=== PATIENT | male | born 1950 | race Caucasian/White ===

== ENCOUNTER → 2018-06-15 | Day surgery (SDC) | payer MEDICARE ==
[2018-05-29 13:42] LABS: BASOPHILS # (AUTO) 0.1 (0.0-0.1); BASOPHILS % 0.9 % (0.0-1.0); EOSINOPHILS # (AUTO) 0.3 (0.0-0.4); EOSINOPHILS % 3.8 % (0.0-6.0); HEMATOCRIT 40.9 % (38.2-49.6); HEMOGLOBIN 13.6 g/dL (14.0-18.0); LYMPHOCYTES # (AUTO) 2.3 (1.0-3.2); LYMPHOCYTES % 26.4 % (18.0-39.1); MEAN CORPUSCULAR HEMOGLOBIN 30.4 pg (28-32); MEAN CORPUSCULAR HGB CONC 33.3 g/dL (31-35); MEAN CORPUSCULAR VOLUME 91.5 fL (81-99); MONOCYTES % 11.3 % (4.4-11.3); NEUTROPHILS % 57.3 % (38.7-80.0); PLATELET COUNT 250 x10e3/uL (140-360); RED BLOOD COUNT 4.47 x10e6/uL (4.3-5.7); RED CELL DISTRIBUTION WIDTH 12.8 % (11.7-14.4)
[2018-05-29 13:55] LABS: ANION GAP 13.9 mmol/L (8-16); BLOOD UREA NITROGEN 11 mg/dL (7-26); BUN/CREATININE RATIO 13 (6-25); CALCIUM 9.1 mg/dL (8.4-10.2); CARBON DIOXIDE 29 mmol/L (22-29); CHLORIDE 99 mmol/L (98-107); CREATININE, SERUM 0.86 mg/dL (0.72-1.25); EST GLOMERULAR FILTRATION RATE > 60 ML/MIN (60-); GLUCOSE 106 mg/dL (74-118); SODIUM 139 mmol/L (136-145)
[2018-05-29 14:00] LABS: POTASSIUM 2.9 mmol/L (3.5-5.1)
--- NOTE | 2018-05-29 14:34 | Diagnostic Imaging Report ---
EXAMINATION: CHEST 2 VIEWS INDICATION: Pre-op. COMPARISON: None FINDINGS: TUBES and LINES: None. LUNGS: Lungs are well inflated. Mild patchy opacities at the left lung base, likely atelectasis. PLEURA: No pleural effusion or pneumothorax. HEART AND MEDIASTINUM: The cardiomediastinal silhouette is unremarkable. Atherosclerotic calcifications of the aortic arch. BONES AND SOFT TISSUES: There are multiple old bilateral rib fractures. The fractures of the left posterolateral sixth through eighth ribs may be subacute. UPPER ABDOMEN: No free air under the diaphragm. IMPRESSION: Bilateral old rib fractures with possible subacute fractures involving the left posterolateral sixth through eighth ribs. This can be correlated clinically. No evidence of pneumothorax. Mild patchy left basilar opacity, likely atelectasis. Signed by: Dr. Otis Reddy MD on 05/29/2018 2:30 PM
[~2018-06-15] MED LIST: ASPIR 8181 MG PO; ATORVASTATIN CA20 MG PO; CLINDAMYCIN 600MG / 50ML 50 ML IV ONE; FENTANYL CITRATE/PF 100MCG/2 ML INJ ONE; GENTAMICIN 120MG/NS 100ML 100 ML ONE; LIDOCAINE HCL 2% LOCAL INJ 5 ML SDV VIAL INJ ONE; METOPROLOL SUCC50 MG PO; MIDAZOLAM HCL 2 MG/2 ML VIAL ONE; POTASSIUM CHLO20 ME1 PO; PROPOFOL IV EMULSION 10 MG/ML 20 ML VIAL ONE; TRIBENZOR 40-51 EAC1 PO
--- OUTSIDE RECORDS SUMMARY | 2018-06-15 07:57 | XMS REPORT ---
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 Allergies, Adverse Reactions, Alerts Allergy Name Allergy Type Status Severity Reaction(s) Onset Date Inactive Date Treating Clinician Comments No Known Intolerances DA Active U 2010-05-18 00:00:00 Medications This patient has no known medications. Results Test Description Test Time Test Comments Text Results Atomic Results Result Comments CHEST 2 VIEWS 2018-05-29 14:24:[address] [address] Patient Name: TRACEY SYED MR #: [id number] : 1950 Age/Sex: 68/M Req #: [id number] [facility] Physician: Ordered by: ALFREDO ESCOBEDO MD Report #: [id number] Location: OR Room/Bed: Procedure: [id number] DX/CHEST 2 VIEWS Exam Date: 05/29/18 Exam Time: 1325 REPORT STATUS: Signed EXAMINATION: CHEST 2 VIEWS INDICATION: Pre-op. COMPARISON: None FINDINGS: TUBES and LINES: None. LUNGS: Lungs are well inflated. Mild patchy opacities at the left lung base, likely atelectasis. PLEURA: No pleural effusion or pneumothorax. HEART AND MEDIASTINUM: The cardiomediastinal silhouette is unremarkable. Atherosclerotic calcifications of the aortic arch. BONES AND SOFT TISSUES: There are multiple old bilateral rib fractures. The fractures of the left posterolateral sixth through eighth ribs may be subacute. UPPER ABDOMEN: No free air under the diaphragm. IMPRESSION: Bilateral old rib fractures with possible subacute fractures involving the left posterolateral sixth through eighth ribs. This can be correlated clinically. No evidence of pneumothorax. Mild patchy left basilar opacity, likely atelectasis. Signed by: Dr. Germán Faust MD on 05/29/2018 2:30 PM Dictated By: GERMÁN FAUST MD 1430 Transcribed By: BARI on 05/29/18 1430 COPY TO: ALFREDO ESCOBEDO MD
[2018-06-15 09:17] LABS: BLOOD UREA NITROGEN 13 mg/dL (7-26); BUN/CREATININE RATIO 13 (6-25); CALCIUM 9.4 mg/dL (8.4-10.2); CARBON DIOXIDE 28 mmol/L (22-29); CHLORIDE 98 mmol/L (98-107); CREATININE, SERUM 1.01 mg/dL (0.72-1.25); EST GLOMERULAR FILTRATION RATE > 60 ML/MIN (60-); GLUCOSE 109 mg/dL (74-118); SODIUM 138 mmol/L (136-145)
[2018-06-15 09:35] VITALS: BP 143/91
--- NOTE | 2018-06-15 18:20 | Operative Report ---
DATE OF PROCEDURE: 06/15/2018 SURGEON: Poncho Jaime MD PREOPERATIVE DIAGNOSIS: Elevated PSA of 7.9. POSTOPERATIVE DIAGNOSIS: Elevated PSA of 7.9. PROCEDURES: 1. Prostate ultrasound. 2. Ultrasound-guidance needle biopsy. 3. Needle biopsy of prostate. ANESTHESIA: General. ESTIMATED BLOOD LOSS: Minimal. COMPLICATIONS: None. INDICATIONS: Mr. Abarca is a 68-year-old male with hemorrhoids, BPH, and elevated PSA. He and I had a long discussion in the office about alternatives, risks and benefits, including doing nothing and prostate biopsy. He voiced understanding of the options, alternatives, the risks, and the benefits, and he elected to proceed. PROCEDURE IN DETAIL: After the patient had taken his enema and taken his prophylactic antibiotics, he was taken to the operating suite. Time-out was taken. Informed consent had been obtained. He was placed supine on the operating table under anesthesia by the Anesthesia service. He was then placed in left lateral decubitus position. Prostate ultrasound: Utilizing a plethora of lubrication, the transrectal ultrasound probe was inserted anally atraumatically. Prostate ultrasound was performed revealing normal-appearing seminal vesicles, scattered hypoechoic areas throughout the prostate, volume calculated at 93.85 mL. Impression, BPH, scattered hypoechoic areas. Ultrasound guidance: The tech and I were present and we used the ultrasound probe to guide the needle biopsies. Needle biopsy of the prostate: Total core approach was performed in the standard medial and lateral, left and right, apex, mid, and base. These pathology specimens were sent as sextant samples with two cores. The patient tolerated the procedure well. Due to the hemorrhoids, there was somewhat greater than normal bleeding, however, still less than 15 mL blood loss. Poncho Jaime MD ES/MODL /[id number] MTDD
--- NOTE | 2018-06-16 08:59 | Diagnostic Imaging Report ---
TECHNIQUE: Transrectal ultrasound of the prostate for biopsy. Elevated PSA ^[id number] ^[id number] FINDINGS: The seminal vesicles are present and unremarkable. The gland size measures 4.5 x 6.0 x 6.7 cm. Prostate volume is 93.9 cubic cm. The peripheral zone is homogeneous without focal nodules. The transition zone demonstrates multiple small cysts. No discrete solid mass is appreciated. IMPRESSION: As above. Signed by: Dr. Rishi Pulido MD on 06/16/2018 8:56 AM
== END | disposition home or self-care (01) ==
LOC: OR 07:55
PROVIDERS: ATTEND Urology
DX: R97.20 Elevated prostate specific antigen [PSA] (principal); N40.0 Benign prostatic hyperplasia without lower urinary tract symptoms; N42.89 Other specified disorders of prostate; K64.9 Unspecified hemorrhoids; G47.33 Obstructive sleep apnea (adult) (pediatric); I10 Essential (primary) hypertension; Z01.812 Encounter for preprocedural laboratory examination; Z01.818 Encounter for other preprocedural examination; Z79.82 Long term (current) use of aspirin
CPT/HCPCS: 36415 ×2; 55700; 71046; 76872; 80048 ×2; 85025; 88305; J1580; J2001; J2250; J2704; 76998